=== PATIENT | male | born 1980 | race Caucasian/White ===

== ENCOUNTER 2021-09-30 13:30 | Emergency (ER) | payer SELFPAY ==
[~2021-09-30 13:30] MED LIST: BACTRIM DS TAB1 EACH PO; NORCO 5-325 TA1 EACH PO
[2021-09-30 15:05] LABS: HEMOGLOBIN 14.9 gm/dl (14.0-17.5); RED BLOOD COUNT 4.74 M/UL (4.20-5.50); WHITE BLOOD COUNT 8.6 K/UL (4.5-11.0)
[2021-09-30 15:19] LABS: BUN/CREATININE RATIO 10 (0-10)
== END 2021-09-30 17:20 | disposition home or self-care (01) ==
LOC: ER1 13:30
PROVIDERS: Emergency Medicine
DX: R53.83 Other fatigue (principal); R79.89 Other specified abnormal findings of blood chemistry; F17.200 Nicotine dependence, unspecified, uncomplicated; Z20.822 Contact with and (suspected) exposure to COVID-19
CPT/HCPCS: 71045; 80053; 80307; 81001; 82550; 82553; 83735; 84439; 84443; 84484; 85025; 99283; U0002